=== PATIENT | female | born 1955 | race Caucasian/White ===

== ENCOUNTER 2018-11-13 09:42 | Inpatient (IN) | payer OTHER ==
[~2018-11-13] VITALS: Ht 165.1 cm; Wt 69.9 kg
--- NOTE | ~2018-11-13 | O ---
[facility] [place] [address] OPERATIVE REPORT Name: JESSE RAMOS Room #: 427-P [facility] IN M.R.#: [id number] Admission: 11/13/18 Attend Phys: Celso Holden MD Discharge: Date of : 55 Report #: [id number] THIS REPORT FOR: //name// CC: [facility] physician/PCP Celso Holden DATE OF SERVICE: 11/14/2018 PREOPERATIVE DIAGNOSIS: Left Schatzker V bicondylar tibial plateau fracture. POSTOPERATIVE DIAGNOSIS: Left Schatzker bicondylar tibial plateau fracture. PROCEDURE: ORIF left bicondylar tibial plateau fracture. SURGEON: Escobar Steiner MD. MANAGER ADOBE: Beth Mccormack PA-C. ANESTHESIA: LMA with a femoral nerve block. IMPLANTS: Synthes 3-hole lateral proximal tibial plateau locking plate and a medial 3-hole buttress plate with multiple cortical and cancellous and locking screws. TOURNIQUET TIME: 75 minutes. ESTIMATED BLOOD LOSS: 50 mL. COMPLICATIONS: None. SPECIMENS: None. CONDITION UPON LEAVING THE OPERATING ROOM: Stable. INDICATIONS FOR PROCEDURE: The patient is a 63-year-old female who had a ground level fall and injured her left tibial plateau. She had an x-ray as well as CT scan showing to have a Schatzker V bicondylar plateau fracture with intervening comminution. After discussion with her, she elected for ORIF. DESCRIPTION OF PROCEDURE: Risks, benefits, alternatives, complications were discussed in detail with the patient including but not limited to risk of anesthesia, risk of damage to nerves, arteries, blood vessels, risk for infection, bleeding, risk for continued knee pain, malunion, nonunion, posttraumatic arthritis and need for reoperation. Informed consent was obtained from the patient. Left knee was appropriately marked in the preoperative holding area. IV Ancef was given for preoperative antibiotics. She was brought [address] [address] OPERATIVE REPORT Name: JESSE RAMOS Room #: 427-P [facility] IN ..#: [id number] Admission: 11/13/18 Attend Phys: Celso Holden MD Discharge: Date of : 55 Report #: [id number] to the operating room and placed in supine position on operating room table. LMA anesthesia was induced without complication. Tourniquet was placed on the left thigh. Left lower extremity was prepped and draped in normal sterile fashion. Timeout was performed properly identifying the patient and procedure as well as the instrumentation and implants. All in the operating room were in agreement. The left lower extremity was exsanguinated, tourniquet was inflated. Tourniquet time was 75 minutes. A dual incision technique was needed for this fracture and a lazy S incision was made over the lateral plateau with a 10 blade through the skin. Dissection was taken down sharply to the fascia and deep flaps were developed anteriorly and posteriorly. A #15 blade was used to then make an incision in the IT band and fascia over Gerdy's tubercle and this was dissected off the proximal plateau anteriorly and posteriorly. A submeniscal arthrotomy was made laterally and the meniscus was tagged with Ethibond suture for later repair. Dissection was then taken distally along the anterolateral border of the tibial crest and the lateral plateau fracture was identified and opened up and curetted and washed out of hematoma. Attention was then turned to the medial fracture. Then, there was an anteromedial large fracture fragment that was felt that we could just put a buttress plate on after fixing the lateral side. An incision over the medial tibia was made with 10 blade through the skin. Dissection was taken down to the fascia and the pes insertion was identified and protected and subperiosteal dissection was taken, all in the medial plateau. After this, large fracture reduction tongs were then placed across the fracture and squeezed the medial and lateral fractures together and fluoroscopic imaging was brought in to verify adequate fracture reduction as was the case. A lateral locking plate was then placed and 1 conical screw was placed proximally to bring the plate down to the bone and then, the remainder of the holes were filled with locking screws except for one distal cortical screw to reduce the plate to the bone. A 3-hole V-shaped type 1/3 tubular plate was then placed medial as a buttress plate and a combination of cortical and locking screws were used for this. After this, final fluoroscopic images were brought in to verify adequate fracture reduction and synagogue of the joint line as well as placement of hardware. The wounds were thoroughly irrigated with normal saline. The fascia was closed with 0 Vicryl, skin was closed with 2-0 Vicryl and skin rancho. Soft dressing of Adaptic, 4 x 4, Webril, Braden wrap and a hinged knee brace were applied. The patient tolerated this procedure well and went to recovery room under care of anesthesia postoperatively. By: [id number] Escobar Steiner MD /lashaun
--- NOTE | ~2018-11-13 | HC ---
[facility] [place] [address] CONSULTATION Name: JESSE RAMOS Room #: 427-P ADM IN M.R.#: [id number] Admission: 11/13/18 Attend Phys: Celso Holden MD Discharge: Date of : 55 Report #: [id number] THIS REPORT FOR: //name// CC: [facility] physician/PCP Celso Holden DATE OF SERVICE: 11/17/2018 HISTORY OF PRESENT ILLNESS: The patient is a 63-year-old white female with history of asthma and hypertension, who tripped sustaining a left medial tibial plateau fracture. She was admitted to [facility] and underwent open reduction and internal fixation on 11/14/2018. She is limited to nonweightbearing. We are seeing her in rehabilitation medicine consultation. PAST MEDICAL HISTORY: Asthma, ADHD, right knee and back arthritis. MEDICATIONS: Please see the full medication listing. This includes vitamins, herbals, and supplements. ALLERGIES: No known drug allergies. HABITS: Current every day smoker, less than a pack a day. No history of alcohol abuse. SOCIAL HISTORY: , lives with her in [place], although she has been staying here recently with her mom. There are 3 small steps in. REVIEW OF SYSTEMS: Did not offer any current complaints of chest pain, shortness of breath or abdominal discomfort. PHYSICAL EXAMINATION: GENERAL: A 63-year-old white female, in no obvious distress. VITAL SIGNS: Last recorded temperature 98.3, pulse 88, respirations 18, blood pressure 137/79. She is alert, pleasant. HEENT: Appeared to be benign. Nasal prong O2 is in place. NEUROLOGIC: Facies are symmetric. Functional range of motion of both upper extremities without obvious focal weakness. DTRs are trace to 1. In her lower extremities, she has functional range of motion of that right lower extremity. No obvious focal weakness. DTRs are 1. Left lower extremity, she does have the knee orthosis in place. She can wiggle her toes, 1+ distal foot dorsal edema. She is mod assist with bed mobility, supine to sit, mod assist sit to stand. ASSESSMENT: A 63-year-old white female with the following problem list: 1. Left medial tibial plateau fracture, status post open reduction and internal fixation on 11/14/2018, nonweightbearing. 2. History of asthma. [address] [address] CONSULTATION Name: JESSE RAMOS Room #: 427-P [facility] IN ..#: [id number] Admission: 11/13/18 Attend Phys: Celso Holden MD Discharge: Date of : 55 Report #: [id number] 3. Right knee and back arthritis per history. PLAN: I do not see that the patient meets criteria for an acute in-hospital inpatient at [address] [place] [address]. Case management will need to check regarding other rehab/therapy options. Thank you for asking us to assist in this patient's care. By: Porsha: 11/17/18 1056 [id number] Akin Bahena MD /nt
[2018-11-13 09:48] VITALS: BP 166/86
[2018-11-13 12:11] VITALS: BP 164/96
[2018-11-13 12:12] VITALS: BP 166/86
[2018-11-13 12:57] LABS: BASOPHILS 0.9 % (0.0-2.0); LYMPHOCYTES 22.8 % (24.0-44.0); MCH 29.4 pg (26.0-34.0); MCHC 34.1 g/dL (28.0-37.0); MCV 86.2 fL (80.0-100.0); MONOCYTES 4.8 % (1.0-8.0); PLATELET COUNT 274 thou/uL (150-400); POLYS 69.5 % (36.0-66.0); RDW 13.8 % (10.5-14.5); WBC 8.7 thou/uL (4.0-11.0)
[2018-11-13 13:07] LABS: CALCIUM 9.3 mg/dL (8.5-10.1); CREATININE 0.9 mg/dL (0.6-1.0); POTASSIUM 3.3 mmol/L (3.5-5.1)
[2018-11-13 13:08] LABS: PROTIME 10.1 Seconds (9.3-11.4)
[2018-11-13 14:14] LABS: ALBUMIN 3.8 g/dL (3.4-5.0); TOTAL PROTEIN 7.6 g/dL (6.4-8.2)
[2018-11-13 14:40] LABS: TSH 0.98 uIU/mL (0.358-3.740)
--- NOTE | 2018-11-13 14:49 | NUR ---
ASSUMED CARE OF PT AT 13:30. ARRIVED FROM ED IN STABLE CONDITION. BELONGINGS DOCUMENTED, JEWELRY AND VALUABLES GIVEN TO FAMILY TO TAKE HOME. ORIENTED TO ROOM AND CALL LIGHT. ADMISSION ASSESSMENT COMPLETED. A&O,X4. REPORTING LEFT KNEE PAIN 7/10, PAIN MEDS GIVEN ORDERED. DENIES ANY OTHER CONCERNS. MAINTAIN LEFT KNEE ELEVATED, REST, AND ICE PER PHYSICIAN REQUEST. WILL CONTINUE TO MONITOR.
[2018-11-13 14:53] VITALS: BP 167/86
[2018-11-13] MEDS ORDERED: METHYLPHENIDATE5 M1 PO (14:56)
[2018-11-13] MEDS ORDERED: ACCUNEB SO1.25 MG/1 INH (14:58)
[2018-11-13 16:59] VITALS: BP 134/74
--- NOTE | 2018-11-13 19:51 | NUR ---
END OF SHIFT. NO CHANGE IN PT CONDITION. PT REPORTING LEFT KNEE PAIN, PAIN MEDS GIVEN ORDERED. LEFT KNEE IMMOBILIZER IN PLACE, ELEVATED ON PILLOWS, AND ICE FOR COMFORT. CIRCULATION INTACT BILATERALLY.
[2018-11-13] MEDS ORDERED: SINGULAIR 10 MG10 M1 PO (20:33)
[2018-11-13 21:00] VITALS: BP 140/74
--- NOTE | 2018-11-14 02:32 | NUR ---
ASSUMED CARE OF PT AT 1900. PT C/O PAIN IN LEFT LOWER EXTREMITY. SURGERY CONSENT SIGNED AND ON CHART. PRE-OP CHECKLIST COMPLETED. PER PICKER AND PACKER PAYER SPECIALIST, BLOOD THINNER HELD AT HS. PRN BENADRYL CREAM ORDERED PER PT REQUEST. PT REQUESTS MONTELUKAST TO BE GIVEN AT HS SHE TAKES IT AT HOME. PICKER AND PACKER ON DUTY NOTIFIED AND NEW ORDER NOTED. LEFT LOWER EXTREMITY ELEVATED, KNEE IMMOBILIZER ONE, AND ICE ON. PT CALLS APPROPRIATELY. WILL CONTINUE TO MONITOR AND ASSIST WITH NEEDS.
[2018-11-14 04:30] VITALS: BP 154/75
[2018-11-14 05:43] LABS: HEMATOCRIT 38.4 % (37.0-47.0); MCH 28.8 pg (26.0-34.0); MCHC 33.3 g/dL (28.0-37.0); MCV 86.4 fL (80.0-100.0); RBC 4.44 mil/uL (4.20-5.00); RDW 13.7 % (10.5-14.5); WBC 8.5 thou/uL (4.0-11.0)
[2018-11-14 05:45] LABS: HEMOGLOBIN 12.8 gm/dL (12.0-15.0)
[2018-11-14 05:54] LABS: CALCIUM 8.6 mg/dL (8.5-10.1); CREATININE 0.9 mg/dL (0.6-1.0); MAGNESIUM 1.8 mg/dL (1.8-2.4); POTASSIUM 3.2 mmol/L (3.5-5.1)
--- NOTE | 2018-11-14 08:10 | NUR ---
ASSUMED PT CARE AT 0700. PT IN EXTREME PAIN. VERY RESTLESS AND ANXIOUS. PT WAS TAKEN TO SURGERY AT 0810.
--- NOTE | 2018-11-14 13:20 | HC ---
[facility] [place] [address] CONSULTATION Name: JESSE RAMOS Room #: 427-P ADM IN M.R.#: [id number] Admission: 11/13/18 Attend Phys: Celso Holden MD Discharge: Date of : 55 Report #: [id number] THIS REPORT FOR: //name// CC: [facility] physician/PCP Celso Holden DATE OF SERVICE: 11/13/2018 REASON FOR CONSULTATION: Left tibial plateau fracture. HISTORY OF PRESENT ILLNESS: The patient is a 63-year-old female who is actually here with her mother in the Emergency Room for evaluation. She tripped on a concrete barrier in a parking lot and fell on to her left knee. She was admitted and found to have a tibial plateau fracture and is being admitted for a definitive treatment. PAST MEDICAL HISTORY: Includes asthma and hypertension. ALLERGIES: No known drug allergies. CURRENT MEDICATIONS: Have been reviewed on the chart. PHYSICAL EXAMINATION: GENERAL: This is a well-developed, well-nourished female in no acute distress. She is alert and oriented, pleasant, cooperative with exam. EXTREMITIES: Left knee shows to have moderate swelling throughout the knee. She is globally tender to palpation on her proximal plateau. NEUROLOGIC: She is neurologically intact and has a palpable posterior tibial pulse. X-ray examination of the left knee shows to have a comminuted Schatzker V tibial plateau fracture. CT scan of the left knee confirms this. ASSESSMENT: Schatzker V comminuted tibial plateau fracture. PLAN: I discussed with her that this needs definitive operative intervention. We are going to place her in a knee immobilizer and ice and elevate her knee today and overnight. I have her on the schedule for ORIF of her tibial plateau fracture tomorrow morning at 8:30 a.m. She will be n.p.o. after midnight. Thank you for allowing us to participate in care of the patient. <ELECTRONICALLY SIGNED> By: Escobar Steiner MD 11/14/18 1320 [id number] Escobar Steiner MD /nt
[2018-11-14 14:30] VITALS: BP 166/83
--- NOTE | 2018-11-14 14:55 | NUR ---
RECEIVED PT BACK FROM OR AT 1455. PT COMFORTABLE, PAIN RATED 4/10. ASSESSMENT IS CHARTED. VITAL SIGNS STABLE. IMMOBILIZER IN PLACE TO LEFT LEG. PT ALERT/ORIENTED X4, AWAKE.
[2018-11-14 18:20] VITALS: BP 154/88
[2018-11-14 20:40] VITALS: BP 107/71
[2018-11-14 21:00] VITALS: BP 92/50
--- NOTE | 2018-11-15 00:36 | NUR ---
Assumed pt care at 1900. Pt A&Ox4, able to make needs known. Able to reposition self in bed. Immobilizer in place to LLE,DRSG intact, circulation intact, ice applied. Continues on CLERICAL OFFICE WORKER pump for pain, pt reports pain is currently controlled. Continuous capnea monitor in place. No s/sx of resp depression or sedation. Emesis x2. Medication administered per orders for nausea with some effectiveness. Pt currently resting in bed, call light within reach, fall precautions in palce, will continue to monitor pt.
[2018-11-15 03:05] LABS: HEMATOCRIT 38.1 % (37.0-47.0); HEMOGLOBIN 12.6 gm/dL (12.0-15.0); MCH 28.5 pg (26.0-34.0); MCV 86.3 fL (80.0-100.0); RBC 4.42 mil/uL (4.20-5.00); RDW 13.8 % (10.5-14.5); WBC 13.4 thou/uL (4.0-11.0)
[2018-11-15 03:10] LABS: CALCIUM 8.7 mg/dL (8.5-10.1); MAGNESIUM 1.8 mg/dL (1.8-2.4); POTASSIUM 3.1 mmol/L (3.5-5.1)
[2018-11-15 04:50] VITALS: BP 148/82
[2018-11-15 07:30] VITALS: BP 147/75
[2018-11-15] MEDS ORDERED: NEURONTIN 300300 M1 PO (09:42)
[2018-11-15] MEDS ORDERED: TRIAMTERENE/HCT1 CA1 PO (09:45)
--- NOTE | 2018-11-15 12:31 | NUR ---
ASSUMED CARE OF PT AT 0700. ASSESSMENT COMPLETED AND CHARTED. PT REPORTING LEFT KNEE/TIBIA PAIN, MEDICAL AND HEALTH SERVICES MANAGER PUMP IN USE. LLI AND ICE IN PLACE. PULSES +2/+2 BILATERALLY. EXPERIENCING SOME NAUSEA, PT REFUSES NAUSEA MEDS AT THIS TIME. VSS. WILL CONTINUE TO MONITOR.
--- NOTE | 2018-11-15 14:12 | NUR ---
ASSESSMENT-PT LIVES IN [place] WITH HER BUT HAS BEEN STAYING WITH HER MOM HERE. SHE HAD BROUGHT HER MOM TO HOSPITAL AND TRIPPED IN PARKING LOT AND NOW WITH FRACTURE. PT SAYS SHE WILL PLAN TO GO STAY WITH [place]OM [place] AND THEY HAVE A NEIGHBOR THAT WILL HELP THEM OUT. AWAITING THERAPY REC FOR DC PLAN. PT PAINFUL AND NAUSEATED NOW.
[2018-11-15 15:56] VITALS: BP 151/86
[2018-11-15 19:48] VITALS: BP 159/83
--- NOTE | 2018-11-15 19:49 | NUR ---
END OF SHIFT. BALLOON DESIGN PRINTER PUMP IN USE. PT REPORTS NAUSEA AND LITTLE APPETITE. MEDS GIVEN ORDERED. PAIN 3-4 WITH BALLOON DESIGN PRINTER PUMP. VSS.
--- NOTE | 2018-11-16 03:39 | NUR ---
ASSUMED PT CARE 1899. PT ALERT AND ORIENTED. IV DRESSING C/D/I. PT ON LIFE SCIENCE RESEARCH ASSISTANT PUMP. PUMP CLEARED WITH DAY SHIFT NURSE. PAIN WELL MANAGED. PT COMPLAINS OF NAUSEA. REEDUCATED PATIENT ABOUT LIFE SCIENCE RESEARCH ASSISTANT PUMP USE. PT ON CAPNEA MONITOR. VSS. PERSONAL BELONGINGS AND CALL LIGHT WITHIN REACH. WILL CONTINUE POC UNTIL EOS.
[2018-11-16 04:23] LABS: HEMATOCRIT 33.8 % (37.0-47.0); HEMOGLOBIN 11.4 gm/dL (12.0-15.0); MCH 29.2 pg (26.0-34.0); MCHC 33.8 g/dL (28.0-37.0); MCV 86.4 fL (80.0-100.0); RBC 3.91 mil/uL (4.20-5.00); RDW 13.9 % (10.5-14.5); WBC 6.3 thou/uL (4.0-11.0)
[2018-11-16 04:46] VITALS: BP 169/73
[2018-11-16 04:59] LABS: CALCIUM 8.5 mg/dL (8.5-10.1); CREATININE 0.9 mg/dL (0.6-1.0); MAGNESIUM 1.9 mg/dL (1.8-2.4); POTASSIUM 3.3 mmol/L (3.5-5.1)
[2018-11-16 08:20] VITALS: BP 140/82
[2018-11-16 15:52] VITALS: BP 137/79
--- NOTE | 2018-11-16 17:23 | NUR ---
Assessment completed.vss.Pt in bed for all activities.Tolerated meds and diet. Dr Steiner here.order noted.Pt still on morphine home health specialist for rt lower extremity pain.Family here to visit,updates given.Encouraged pt to call for needs.Will continue to monitor.
[2018-11-16 22:10] VITALS: BP 117/80
--- NOTE | 2018-11-17 01:02 | NUR ---
ASSUMED PT CARE 1900. PT ALERT AND ORIENTED, REPORTS PAIN IS WELL CONTROLLED. REASSESSMENT COMPLETED. PUMP CLEARED AND VERIFIED WITH DAY NURSE. VSS. APNEA MONIOTOR IN PLACE FOR MACHINE CLIPPER USE. LEFT LEG IMMOBILIZER IN PLACE. NEURO CHECK TO L LEG GOOD, 2 OVER 2 PULSES. SOME SWELLING IN LEFT FOOT. DENIES NAUSEA AT THIS TIME. MACHINE CLIPPER PUMP BUTTON, CALL LIGHT AND PT PERSONAL BELONINGS ALL WITHIN REACH. WILL CONTINUE POC UNTIL EOS.
--- NOTE | 2018-11-17 01:07 | NUR ---
ASSUMED PT CARE 1899. PT ALERT AND ORIENTED. REASSESSMENT COMPLETE. VSS. PT DENIES NAUSEA AT THIS TIME. PT REPORTS MODERATE PAIN, MEDICATION GIVEN, SEE EMAR. PT UP STEADY IN ROOM. DAUGHTER AT PT BEDSIDE. IV DRESSING C/D/I, NO SIGNS OF INFILTRATION. PT CALL LIGHT AND PERSONAL BELONIGNS WITHIN REACH. WILL CONTINUE POC UNTIL EOS.
[2018-11-17 02:50] VITALS: BP 135/71
[2018-11-17 05:28] LABS: HEMATOCRIT 33.5 % (37.0-47.0); HEMOGLOBIN 11.5 gm/dL (12.0-15.0); MCH 29.3 pg (26.0-34.0); MCHC 34.5 g/dL (28.0-37.0); MCV 85.1 fL (80.0-100.0); RBC 3.94 mil/uL (4.20-5.00); RDW 13.5 % (10.5-14.5); WBC 6.3 thou/uL (4.0-11.0)
[2018-11-17 05:41] LABS: CALCIUM 8.4 mg/dL (8.5-10.1); CREATININE 0.7 mg/dL (0.6-1.0); MAGNESIUM 1.8 mg/dL (1.8-2.4); POTASSIUM 3.3 mmol/L (3.5-5.1)
[2018-11-17 07:58] VITALS: BP 137/79
--- NOTE | 2018-11-17 08:50 | NUR ---
ASSUMED CARE OF PT AT 0700. ASSESSMENT COMPLETED AND CHARTED. A&O,X4. REPORTING 3/10 LEFT KNEE/TIBIA PAIN POST OP, TRAINING EXECUTIVE PUMP IN USE. PT STATES WANTING TO STOP USING TRAINING EXECUTIVE PUMP, WILL NOTIFY PHYSICIAN. DENIES N/V/D AT THIS TIME. REPORTS SMALL BM LAST NIGHT. LLL IMMOBILIZER IN PLACE, NON PITTING PEDAL EDEMA NOTED. CIRCULATION INTACT BILATERALLY. ELEVATED BP, AM MEDS GIVEN ORDERED. WILL CONTINUE TO MONITOR.
--- NOTE | 2018-11-17 15:35 | NUR ---
FAXED REFERRAL TO [facility] AND SPOKE WITH SALENA IN ADM. AND SHE RECEIVED REFERRAL AND WILL ACCEPT PT. AT DISCHARGE. ANTICIPATE DC TOMORROW 11/18/18. DCP TO FOLLOW.
--- NOTE | 2018-11-17 16:56 | NUR ---
S/W PT AND SHE IS INTERESTED IN REHAB AT [facility] WHICH IS CLOSE TO HER MOM'S HOME. DC BEHAVIORIST FAXED REFERAL AND THEY ARE ABLE TO ACCEPT PT. S/W PT'S BY PHONE AND ANSWERED HIS QUESTIONS RELATED TO REHAB WELL.
[2018-11-17 16:59] VITALS: BP 115/62
[2018-11-17 19:34] VITALS: BP 144/83
[2018-11-18 04:31] VITALS: BP 133/66
--- NOTE | 2018-11-18 05:08 | NUR ---
A/o, calm and pleasant; c/o pain in left leg, pain medication given and worked. Patient voiced that she scrached the skin area under that wrap due to the itching. Patient showed concern of skin broken down due to the scraching, the staff checked, the skin was intact. vss, afebrile, bed rest now, will keep monitoring.
[2018-11-18 07:42] VITALS: BP 112/69
[2018-11-18 09:55] VITALS: BP 112/69
[2018-11-18] MEDS ORDERED: SENNA8.6 MG PO (14:27)
[2018-11-18] MEDS ORDERED: MIRALAX17 GM PO (14:27)
[2018-11-18] MEDS ORDERED: PERCOCET PO (14:27)
--- NOTE | 2018-11-18 15:50 | NUR ---
PT. [place] [facility] [place]DERS/SUMMARY TO FACILITY. SPOKE WITH SALENA IN ADM. AND SHE RECEIVED ORDERS AND SET UP TRANSPORTATION VIA [employer] [facility] FOR [id number]. NOTIFIED OF DISCHARGE AND TIME OF TRANSPORT. UNIT NOTIFIED AND CHART COPY PER [place] RN TO CALL REPORT TO [phone].
--- NOTE | 2018-11-18 18:07 | NUR ---
ASSUMED CARE OF PT AT 0700. ASSESSMENT COMPLETED AND CHARTED. A&O,X4. REPORTING LEFT KNEE PAIN POST OP, PAIN MEDS GIVEN ORDERED. C/O NAUSEA AT TIMES, MEDS GIVEN ORDERED. BP MEDS HELD DUE TO LOW AM BP. MAINTAINING LLE NWB AND IMMOBILIZER IN PLACE. NEW D/C ORDERS TO SKILLED FACILITY. REPORT CALLED PRIOR TO PT LEAVING. IV REMOVED, NO BLEEDING. PT BELONGINGS SENT WITH PT INCLUDING HOME MEDS FROM PHARMACY. PT LEFT VIA [facility] AT 17:19 IN STABLE CONDITION.
--- NOTE | 2018-11-18 20:30 | NUR ---
[facility] CALLED AND STATED THEY RECIEVED ANOTHER PATIENT'S SCRIPTS AND DID NOT HAVE JESSE MINGLE NARCOTIC SCRIPTS. CHARGE NURSE AND SITE RELIABILITY ENGINEER NOTIFIED. NO HARD COPY SCRIPTS FOUND FOR PT. CALLED ON-CALL [employer] FOR SCRIPTS.
== END 2018-11-18 17:22 | DRG 494 ==
LOC: ER 09:42 → 4E 11:36 → EROBS 11:36 → 4E 13:05
PROVIDERS: Student in an Organized Health Care Education/Training Program; ADMIT Internal Medicine
PROC: 0QSH04Z Reposition Left Tibia with Internal Fixation Device, Open Approach (ICD-10-PCS; principal; 2018-11-14)
DX: S82.142A Displaced bicondylar fracture of left tibia, initial encounter for closed fracture (principal); G89.29 Other chronic pain; M54.9 Dorsalgia, unspecified; J45.909 Unspecified asthma, uncomplicated; I10 Essential (primary) hypertension; W01.0XXA Fall on same level from slipping, tripping and stumbling without subsequent striking against object, initial encounter; F90.9 Attention-deficit hyperactivity disorder, unspecified type; M47.9 Spondylosis, unspecified; F17.210 Nicotine dependence, cigarettes, uncomplicated; M17.11 Unilateral primary osteoarthritis, right knee; Z79.899 Other long term (current) drug therapy; Y93.89 Activity, other specified; Y92.481 Parking lot as the place of occurrence of the external cause; Y99.8 Other external cause status
CPT/HCPCS: 10084; 50010; 50101; 50341; 50386; 51132; 51412; 53078; 55430; 56524; 56528; 56530; 56667; 57091; 62110; 62900; 70005